=== PATIENT | male | born 1980 | race Caucasian/White ===

== ENCOUNTER 2022-10-24 18:55 | Emergency (ER) | payer SELFPAY ==
[~2022-10-24 18:55] MED LIST: Iopamidol 370 76% 100 ML VIAL ONE
[2022-10-24] MEDS ORDERED: Acetaminophen 500 MG TAB ONE (19:20)
[2022-10-24] MEDS ORDERED: Ketorolac Tromethamine 30 MG/ML VIAL ONE (19:20)
[2022-10-24 19:21] LABS: #Basophils 0.1 thou/uL (0.0-0.2); #Eosinphils 0.2 thou/uL (0.0-0.7); #Lymphocytes 2.6 thou/uL (1.20-3.40); #Monocytes 0.7 thou/uL (0.11-0.59); %Basophils 0.8 % (0.0-1.0); %Eosinophils 2.6 % (0.0-10.0); %Lymphocytes 30.5 % (21.0-51.0); %Monocytes 8.5 % (0.0-10.0); %Neutrophils 57.5 % (42.0-75.0); Hematocrit 52.9 % (42.0-52.0); Mean Corpuscular HGB CONC 32.1 g/dL (32.0-36.0); Mean Corpuscular Hemoglobin 30.4 pg (27.0-31.0); Mean Corpuscular Volume 94.7 fl (78.0-98.0); Mean Platelet Volume 6.9 fL (7.4-10.4); Platelet Count 262 10x3/uL (130-400); RBC Distribution Width 11.4 % (11.5-14.5); Red Blood Cell (RBC) Count 5.58 mill/uL (4.70-6.10); White Blood Cell (WBC) Count 8.6 10x3/uL (4.8-10.8)
[2022-10-24 19:39] LABS: ALT (SGPT) 63 U/L (8-55); AST (SGOT) 34 U/L (5-34); Albumin 4.4 g/dL (3.5-5.0); Alkaline Phosphatase 93 U/L (40-110); Anion Gap 18 mmol/L (10-20); BUN (Urea Nitrogen) 15 mg/dL (8.9-20.6); Bilirubin, Total 0.5 mg/dL (0.2-1.2); Calc. Creatinine Clearance 0 mL/min (70-130); Calcium 9.4 mg/dL (7.8-10.44); Carbon Dioxide 20 mmol/L (22-29); Chloride 106 mmol/L (98-107); Estimated GFR 83; Globulin 3.3 g/dL (2.4-3.5); Glucose 104 mg/dL (70-105); Lipase 38 U/L (8-78); Protein, Total 7.7 g/dL (6.0-8.3); Sodium 140 mmol/L (136-145); Troponin I Less than 0.010 ng/mL (< 0.028)
[2022-10-24] MEDS ORDERED: traMADol HCl 50 MG TAB ONE (22:04)
[2022-10-24] MEDS ORDERED: Dexamethasone 4 MG TAB ONE (22:06)
== END 2022-10-24 22:19 | disposition home or self-care (01) ==
LOC: BURERS 18:55
DX: R07.89 Other chest pain (principal); F17.200 Nicotine dependence, unspecified, uncomplicated
CPT/HCPCS: 71045; 71275; 80053; 83690; 84484; 85025; 93005; 96374; J1885; J8540; Q9967